=== PATIENT | female | born 1980 | race Two or more races ===

== ENCOUNTER 2016-08-03 11:18 | Inpatient (IN) | payer BC, MEDICAID ==
[~2016-08-03] VITALS: Ht 154.9 cm; Wt 83.5 kg
--- NOTE | ~2016-08-03 | OR ---
PAT[facility] NAME: [facility] AGE: 36 Y [address] ROOM: [place] [id number] LOCATION: GO ADMIT DATE: 08/03/2016 OR/Procedure Report DISCHARGE DATE: FAMILY PHYSICIAN: PHYSICIAN, NO ATTENDING PHYSICIAN: ÓSCAR DEVRIES SURGEON: Óscar Devries MD BUSINESS ENTER[employer]ISE OFFICER: DATE OF PROCEDURE: 08/04/2016 PREOPERATIVE DIAGNOSES: 1. Intrauterine , 40 weeks, 0 days. 2. Gestational hypertension. POSTOPERATIVE DIAGNOSES: 1. Intrauterine , 40 weeks, 0 days. 2. Gestational hypertension. PROCEDURE PERFORMED: Spontaneous vaginal delivery over intact perineum. ANESTHESIA: Epidural. FINDINGS: Viable male infant, with score of 8 and 9 and weight of 7 pounds, 1 ounce. Placenta intact with 3-vessel cord. No cervical, vaginal, or perineal lacerations. COMPLICATIONS: None. INDICATIONS: The patient is a 36-year-old, G4, P3-0-0-3, with intrauterine 39 weeks, 6 days who presented to the clinic and had elevated blood pressure. She was subsequently sent to Labor and Delivery for induction of labor. She had Cytotec placed. She then had artificial ruptured membranes of clear fluids, and Pitocin was started, she progressed to complete. DESCRIPTION OF PROCEDURE: The patient was placed in dorsal lithotomy, prepped and draped in the usual fashion. She then started maternal expulsive efforts and delivered the head without complications in the NICOLASA position. Anterior shoulder delivered, followed by the remainder of the fetus. The was placed on mother's abdomen. The cord blood was then obtained. Placenta delivered intact with 3-vessel cord. No lacerations were noted. Sponge and needle counts were correct at the conclusion of the case. DISPOSITION: Mom stable, baby in room with mom. PATIENT'S NAME: [facility] AGE: 36 Y [address] ROOM: [place] [address] LOCATION: [facility] ADMIT DATE: 08/03/2016 OR/Procedure Report DISCHARGE DATE: FAMILY PHYSICIAN: PHYSICIAN, NO ATTENDING PHYSICIAN: ÓSCAR DEVRIES MD STANISLAV HU/jessica /[id number] d: 08/04/16 0958 t: 08/06/16 1703, OPERATIVE SUMMARY
[2016-08-03 12:55] LABS: BASOPHIL % 0.5 %; EOSINOPHIL # 0.1 K/uL (0.0-0.5); EOSINOPHIL % 0.8 %; HEMATOCRIT 33.8 % (33.0-46.0); HEMOGLOBIN 10.7 g/dL (11.0-15.0); IMMATURE GRANULOCYTE # 0.3 K/uL (0.0-0.3); IMMATURE GRANULOCYTE % 3.4 %; LYMPHOCYTE # 1.6 K/uL (0.8-4.0); LYMPHOCYTE % 18.2 %; MCH 25.5 pg (27.0-34.0); MCHC 31.7 gm/dL (32.0-36.5); MCV 80.7 fl (83.0-98.0); MONOCYTE # 0.6 K/uL (0.0-1.0); MONOCYTE % 7.5 %; MPV 9.8 fl (9.4-12.4); NEUTROPHIL % 69.6 %; NRBC % 0 /100WBC (0-0.00); PLATELET COUNT 269 K/uL (150-450); RBC 4.19 M/uL (3.50-5.50); RDW-CV 14.8 % (11.9-14.6); WBC 8.6 K/uL (4.0-11.0)
[2016-08-03 13:16] LABS: ALBUMIN 2.4 gm/dL (3.5-5.0); ALK PHOS 145 IU/L (33-138); ALT 13 IU/L (12-78); ANION GAP 16.9 (10.0-19.0); AST 15 IU/L (10-40); BLOOD UREA NITROGEN 8 mg/dL (6-24); CALCIUM 8.4 mg/dL (8.5-10.5); CHLORIDE 107 mMol/L (96-110); CO2 19 mMol/L (22-32); CREATININE 0.4 mg/dL (0.5-1.1); ESTIMATED GFR (MDRD EQUATION) > 60; POTASSIUM 3.9 mMol/L (3.7-5.1); SODIUM 139 mMol/L (135-145); TOTAL BILIRUBIN 0.9 mg/dL (0.0-1.5); TOTAL PROTEIN 6.6 g/dL (6.0-8.4)
[2016-08-03] MEDS ORDERED: PRENATAL 1+1)(P1 TAB PO (13:22)
[2016-08-04 04:58] LABS: BASOPHIL # 0.1 K/uL (0.0-0.2); BASOPHIL % 0.4 %; EOSINOPHIL # 0.1 K/uL (0.0-0.5); EOSINOPHIL % 0.7 %; HEMOGLOBIN 9.9 g/dL (11.0-15.0); IMMATURE GRANULOCYTE # 0.2 K/uL (0.0-0.3); IMMATURE GRANULOCYTE % 1.4 %; LYMPHOCYTE # 1.8 K/uL (0.8-4.0); LYMPHOCYTE % 15.7 %; MCH 25.6 pg (27.0-34.0); MCHC 31.9 gm/dL (32.0-36.5); MCV 80.3 fl (83.0-98.0); MONOCYTE # 0.9 K/uL (0.0-1.0); MONOCYTE % 7.9 %; MPV 9.6 fl (9.4-12.4); NEUTROPHIL # (ANC) 8.6 K/uL (1.8-7.8); NEUTROPHIL % 73.9 %; NRBC % 0 /100WBC (0-0.00); PLATELET COUNT 254 K/uL (150-450); RBC 3.86 M/uL (3.50-5.50); RDW-CV 14.9 % (11.9-14.6); WBC 11.6 K/uL (4.0-11.0)
--- NOTE | 2016-08-04 05:08 | NUR ---
Last VS: T:97.7 P:94 R: 14 BP: 136/87 Pain ratin. Last pain med: Motrin Medicated at: 0114 Effective: Yes Breasts: soft Nipples: not assessed Fundus: firm, midline, 1 above Lochia: small, rubra Epis/Perineum: intact, tender Voiding well: Voids on own WNL Significant event: VSS, said wants to breast and bottle feed, but no attempts to put baby to breast. BPs 110s-140s/70s-90s. Tidied.
--- NOTE | 2016-08-05 04:28 | NUR ---
vss, fundus firm, at umbilicus, small flow. pt had 1 motrin at 2251. only speaks azerbaijani, will translate when he is here. pt independent with cares and up ad fabrice in room. home today.
[2016-08-05] MEDS ORDERED: MOTRIN800 MG PO (10:50)
[2016-08-05] MEDS ORDERED: PERCOCET 5-3251 EACH PO (10:51)
== END 2016-08-05 11:50 | disposition disaster alternative care site (69) | DRG 775 ==
LOC: GOBS 11:27
PROVIDERS: ADMIT Obstetrics & Gynecology
PROC: 3E0P7GC Introduction of Other Therapeutic Substance into Female Reproductive, Via Natural or Artificial Opening (ICD-10-PCS; principal; 2016-08-04)
PROC: 10907ZC Drainage of Amniotic Fluid, Therapeutic from Products of Conception, Via Natural or Artificial Opening (ICD-10-PCS; principal; 2016-08-04)
PROC: 10E0XZZ Delivery of Products of Conception, External Approach (ICD-10-PCS; principal; 2016-08-04)
DX: O13.4 Gestational [pregnancy-induced] hypertension without significant proteinuria, complicating childbirth (principal); Z37.0 Single live birth; Z3A.40 40 weeks gestation of pregnancy
CPT/HCPCS: J2590; J3010; J7120